=== PATIENT | female | born 1975 | race Two or more races ===

== ENCOUNTER → 2016-08-03 | Outpatient (CLI) | payer OTHER ==
--- NOTE | 2016-08-03 08:37 | RAD ---
Ultrasound of the abdomen 08/03/2016 Clinical history: Right upper quadrant abdominal pain. Technique: A real-time ultrasound examination of the abdomen was performed. Multiple images were obtained. Findings: The gallbladder is well-distended. No gallstones are visualized. The gallbladder wall thickness within normal limits. The common bile duct measures 3 mm in diameter which is within normal limits. The liver is normal in size measuring 14 cm in length. No focal abnormality of the liver is seen. The spleen measures 9 cm in length which is within normal limits. No focal abnormality of the spleen is seen. Both kidneys are within normal limits in size and echogenicity. The right kidney measures 11.3 cm in length. Left kidney measures 10.9 cm in length. No focal abnormality of either kidney is seen. There is no evidence of hydronephrosis. The abdominal aorta tapers normally. The inferior vena cava is within normal limits. No free fluid is seen. Impression: Negative study.
== END | disposition home or self-care (01) ==
LOC: US 07:15
PROVIDERS: ATTEND Internal Medicine Gastroenterology
DX: R10.11 Right upper quadrant pain (principal)
CPT/HCPCS: 76700